=== PATIENT | female | born 1940 | race Caucasian/White ===

== ENCOUNTER → 2018-02-05 | Outpatient (CLI) | payer OTHER ==
[~2018-02-05] MED LIST: ATEN25; ATOR10 PO; CEFP200 PO; DIPH50 PO; FLUT.05NI; HYDACE5 PO; HYDCHL25; IBUP400 PO; PHENA200 PO; PRED10 PO; PROM25 PO; Prinivil10 MG PO; RXPHEN200 PO; RXSULTRIDS PO; SULTRIDS PO; VALACYCLOVIR1000 MG PO
[2018-02-06 09:42] LABS: Source Vagina
[2018-02-07 13:05] LABS: HPV Genotype 16 Not Detected (NOTDET); HPV Genotype 18 Not Detected (NOTDET)
[2018-02-12 15:25] LABS: HPV High Risk Other Not Detected (NOTDET)
== END ==
LOC: LAB SHORT 16:43 → OLS 16:43
PROVIDERS: Obstetrics & Gynecology Gynecology
DX: Z91.89 Other specified personal risk factors, not elsewhere classified (principal)
CPT/HCPCS: 87624; G0123

== ENCOUNTER → 2018-03-06 | Outpatient (CLI) | payer OTHER | END | disposition home or self-care (01) | LOC: LAB SHORT 14:05 → PLD 14:05 | DX: D04.4 Carcinoma in situ of skin of scalp and neck (principal) | CPT/HCPCS: 88305 ==

== ENCOUNTER → 2018-11-13 | Outpatient (CLI) | payer OTHER | END | disposition home or self-care (01) | LOC: LAB SHORT 08:54 → PLD 08:54 | DX: D03.39 Melanoma in situ of other parts of face (principal); L57.0 Actinic keratosis; L98.8 Other specified disorders of the skin and subcutaneous tissue | CPT/HCPCS: 88305; 88312 ==

== ENCOUNTER → 2018-12-10 | Outpatient (CLI) | payer OTHER | END | disposition home or self-care (01) | LOC: PLD 13:53 → LAB SHORT 13:53 | DX: D03.39 Melanoma in situ of other parts of face (principal); L82.1 Other seborrheic keratosis | CPT/HCPCS: 88305 ==

== ENCOUNTER → 2018-12-17 | Outpatient (CLI) | payer OTHER | END | disposition home or self-care (01) | LOC: PLD 07:35 → LAB SHORT 07:35 | DX: D03.39 Melanoma in situ of other parts of face (principal) | CPT/HCPCS: 88305 ==

== ENCOUNTER 2019-04-30 09:41 | Day surgery (SDC) | payer OTHER, SELFPAY ==
[2019-04-30 13:53] LABS: Performing Lab VERACYTE; Test Name FNA
== END 2019-04-30 23:43 | disposition home or self-care (01) ==
LOC: US 09:41
PROVIDERS: Family Medicine
PROC: 0GBG3ZX Excision of Left Thyroid Gland Lobe, Percutaneous Approach, Diagnostic (ICD-10-PCS; principal; 2019-04-30)
DX: E04.1 Nontoxic single thyroid nodule (principal)
CPT/HCPCS: 10005

== ENCOUNTER → 2019-05-14 | Outpatient (CLI) | payer OTHER, SELFPAY ==
[2019-05-16 15:07] LABS: HPV 16 Negative (Negative); HPV 18 Negative (Negative); HPV OTHER HR TYPES Negative (Negative)
== END | disposition home or self-care (01) ==
LOC: LAB SHORT 16:43 → LAB 16:43
PROVIDERS: Obstetrics & Gynecology Gynecology
DX: Z91.89 Other specified personal risk factors, not elsewhere classified (principal)
CPT/HCPCS: 87624; G0123

== ENCOUNTER → 2020-02-17 | Outpatient (CLI) | payer OTHER | END | disposition home or self-care (01) | LOC: PLD 11:50 → LAB SHORT 11:50 | DX: D04.5 Carcinoma in situ of skin of trunk (principal) | CPT/HCPCS: 88305 ==

== ENCOUNTER → 2020-09-20 | Outpatient (CLI) | payer OTHER, SELFPAY ==
[2020-09-20 11:54] LABS: Source, Urine Clean Catch
[2020-09-20 13:56] LABS: Appearance, Urine Clear (Clear); Bilirubin, Urine Neg (Neg); Blood, Urine Neg (Neg); Color, Urine Yellow (P-Yellow); Glucose Qualitative, Urine Neg (Neg); Ketones, Urine Neg (Neg); Leukocyte Esterase, Urine 2+ (Neg); Nitrite, Urine Neg (Neg); Protein, Urine Neg (Neg); Urobilinogen, Urine NORM (Normal)
[2020-09-20 14:12] LABS: Bacteria Mod /hpf; Red Blood Cells, Urine 0-2 /hpf (0-2); Squamous Epithelial Cells Mod /hpf (Few)
[2020-09-20 14:13] LABS: Transitional Epithelial Cells Rare /hpf (0-Rare)
[2020-09-20 17:49] LABS: Creatinine, Urine Random 67.1 mg/dL (27.00-270.00); Protein, Urine Random 9.7 mg/dL (0.0-11.9); Protein/Creat Ratio, Ur Random 0.1
[2020-09-20 17:56] LABS: Creatinine, Urine Random 65.3 mg/dL (27.00-270.00); Microalb/Creat Ratio UR, Rand 12.251 mg/g (0.000-30.000)
== END ==
LOC: PLD 11:51 → LAB SHORT 11:51
PROVIDERS: Family Medicine
DX: N18.31 Chronic kidney disease, stage 3a (principal)
CPT/HCPCS: 81001; 82043; 82570; 84156; 87086

== ENCOUNTER → 2022-05-29 | Outpatient (CLI) | payer OTHER | END | disposition home or self-care (01) | LOC: PLD 08:07 → LAB SHORT 08:07 | DX: D48.5 Neoplasm of uncertain behavior of skin (principal) | CPT/HCPCS: 88305 ==

== ENCOUNTER 2022-07-06 21:08 | Inpatient (IN) | payer OTHER ==
[~2022-07-06] VITALS: Ht 167.6 cm; Wt 80.6 kg
[~2022-07-06 21:08] MED LIST changes: -B-100 COMPLEX100 MG PO; -B-121000 MC7 PO; -C COMPLEX1000 M1 PO; -CALCIUM-MAGNES1 EAC9; -CO Q-10100 MG PO; -ELIQUIS2.5 M1 PO; -ELIQUIS5 M2 PO; -GENICIN500 M2 PO; -L-Lysine500 M1 PO; -LEVO750 PO; -LISINOPRIL-HCT1 EACH PO; -METO25ER PO; -MULTI-VITAMIN1 EAC2 PO; -Magnesium250 MG PO; -ONDA4ODT MM; -PROBIOTIC; -VISBIOME 112.51 EACH PO; -VIT E; -VITAMIN D3; -[UNRECOGNIZED DRUG - OTHER]
[2022-07-06 23:23] LABS: BASOPHILS ABSOLUTE AUTO 0.04 K/mm3 (0.00-0.23); BASOPHILS PERCENT AUTO 0 % (0-2); EOSINOPHILS PERCENT AUTO 0 % (0-6); Hematocrit 41.5 % (33.0-51.0); Hemoglobin 13.9 g/dL (11.5-16.0); IMMATURE GRAN ABSOLUTE AUTO 0.12 K/mm3 (0.00-0.10); IMMATURE GRAN PERCENT AUTO 1 % (0-1); LYMPHOCYTES ABSOLUTE AUTO 0.47 K/mm3 (0.84-5.20); LYMPHOCYTES PERCENT AUTO 2 % (21-46); MONOCYTES ABSOLUTE AUTO 1.12 K/mm3 (0.16-1.47); MONOCYTES PERCENT AUTO 6 % (4-13); Mean Corpuscular HGB 29.1 pg (26.0-34.0); Mean Corpuscular HGB Conc 33.5 g/dL (31.5-36.5); Mean Corpuscular Volume 87 fL (80-100); Mean Platelet Volume 9.6 fL (9.1-12.4); NEUTROPHILS ABSOLUTE AUTO 17.65 K/mm3 (1.96-9.15); NEUTROPHILS PERCENT AUTO 91 % (41-73); Platelet Count 213 K/mm3 (150-400); RDW Standard Deviation 41.6 fL (35.1-46.3); Red Blood Cell Count 4.77 M/mm3 (3.80-5.20)
[2022-07-06] MEDS ORDERED: LISINOPRIL-HCT1 EACH PO (23:25)
[2022-07-06] MEDS ORDERED: MULTI-VITAMIN1 EAC2 PO (23:25)
[2022-07-06] MEDS ORDERED: CO Q-10100 MG PO (23:25)
[2022-07-06] MEDS ORDERED: ELIQUIS2.5 M1 PO (23:25)
[2022-07-06] MEDS ORDERED: GENICIN500 M2 PO (23:26)
[2022-07-06] MEDS ORDERED: L-Lysine500 M1 PO (23:26)
[2022-07-06] MEDS ORDERED: B-100 COMPLEX100 MG PO (23:26)
[2022-07-06] MEDS ORDERED: Magnesium250 MG PO (23:27)
[2022-07-06] MEDS ORDERED: B-121000 MC7 PO (23:27)
[2022-07-06] MEDS ORDERED: C COMPLEX1000 M1 PO (23:28)
[2022-07-06] MEDS ORDERED: [UNRECOGNIZED DRUG - OTHER] (23:29)
[2022-07-06] MEDS ORDERED: PROBIOTIC (23:29)
[2022-07-06] MEDS ORDERED: VITAMIN D3 (23:30)
[2022-07-06] MEDS ORDERED: VIT E (23:30)
[2022-07-06] MEDS ORDERED: CALCIUM-MAGNES1 EAC9 (23:31)
[2022-07-06 23:42] LABS: Albumin, Blood 3.4 g/dL (3.4-5.0); Albumin/Globulin Ratio 0.9 (0.8-1.8); Bilirubin, Total 1.4 mg/dL (0.1-1.0); Calcium, Blood 9.2 mg/dL (8.5-10.1); Creatinine, Blood 1.06 mg/dL (0.40-1.00); Globulin, Blood 3.9 g/dL (2.2-4.0); Potassium, Blood 3.4 mmol/L (3.5-5.5); Total Protein, Blood 7.3 g/dL (6.4-8.2)
[2022-07-07 08:04] LABS: Magnesium, Blood 1.6 mg/dL (1.6-2.4); Phosphorus, Blood 2.2 mg/dL (2.5-4.9); Thyroid Stimulating Hormone 0.635 uIU/mL (0.360-4.800)
--- NOTE | 2022-07-07 10:23 | NUR ---
ASSUMPTION OF CARE ALBERTO ESPINOZA AND MERLYN ESPINOZA ASSUMED CARE OF PATIENT AT 0700. REPORT TAKEN FROM SHAKIRA ESPINOZA. PATIENT IS A&O X3 WITH CONFUSION OF THE LOCATION THAT SHE'S IN. PATIENT IS CALM AND COOPERATIVE WITH CARE. PATIENT WAS ABLE TO TRANSFER TO THE BEDSIDE COMMODE THIS AM WITH 1 PERSON MINIMAL ASSIST, GAIT BELT AND WALKER USED. PATIENT NEEDED HELP GETTING TO A SITTING POSITION IN BED BUT WAS ABLE TO STAND AND AMBULATE WELL. PATIENT NEEDED HELP WITH WIPING AND PERICARE WELL WHEN GETTING OFF THE COMMODE. PATIENT STATED SHE FELT LIKE SHE NEEDED TO URINATE BUT WAS UNABLE TO VOID. PATIENT'S SBP 80-100 THIS MORNING. MAP REMAINED >65. OTHER VITALS STABLE. AFEBRILE. BED IN LOWEST POSITION AND CALL LIGHT WITHIN REACH.
--- NOTE | 2022-07-07 14:15 | NUR ---
PT C/O BACK PAIN TO RT SIDE PAIN, PLAN TO ADMINISTER TYLENOL FOR PAIN. UPON RETURNING TO ROOM WITH TYLENOL VITAL SIGNS ASSESSED, PT NOTED TO BE FEBRILE AT THIS TIME. PT HAD PREVIOUSLY TOELRATED ORAL MEDS WHOLE WELL WITH WATER, BUT NOW REQUIRES CRUSHED IN APPLESAUCE. PT WAS ALERT FOLLOWS COMMANDS, BUT WAS CONFUSED. HR NOTED TO INCREASE FROM LOW 100-110s TO 150s, PT BECOMES MORE CONFUSED, SHE IS DIFFICULT TO ARROUSE. PT SHIVERING, SKIN BECOMES COOL TO TOUCH AND IS DIAPHORETIC, PT NOTED TO ALSO SUDDENLY BE HYPERTENSIVE. BODY TRIMMER GABE TO BEDSIDE ALSO FOR ASSESSMENT. PT'S MENTATION QUICKLY IMPROVES, SHE AWAKENS TO VERBAL STIMULI EASILY, COOLNESS AND DIAPHORESIS BOTH RESOLVE WITHOUT INTERVENTION, BP AND HR RETURN TO BASELINE ALSO WITHOUT INTERVENTION. DR SMITH CALLED TO ROOM, HE ARRIVES FOR REASSESSMENT. DR SMITH UPDATED THAT PT HAS HAD NO OUTPUT DURING THIS SHIFT, AND BLADDER SCAN REVEALED LESS THAN 155ML IN BLADDER. NEW ORDERS OBTAINED FOR RENAL LAB PANEL WHICH ARE BEING DRAWN NOW AND RENAL/BLADDER ULTRASOUND, WHICH THE [employer] DEPARTMENT MANAGER IS ON HER WAY AT THE TIME OF THIS NOTE. PT DOES REMAIN FOGETFUL, VITALS HAVE RETURNED TO BASELINE. FAMILY AT BEDSIDE. WILL CONTINUE TO OBSERVE FOR CHANGES. PT'S FEVER CONTINUES TO IMPROVE
[2022-07-07 14:50] LABS: Albumin, Blood 2.5 g/dL (3.4-5.0); Anion Gap 12 mmol/L (6-16); Blood Urea Nitrogen 22 mg/dL (8-24); Bun/Creatinine Ratio 17.1 (12.0-20.0); CO2, Blood 23 mmol/L (21-32); Calcium, Blood 8.5 mg/dL (8.5-10.1); Chloride, Blood 96 mmol/L (98-108); Creatinine, Blood 1.29 mg/dL (0.40-1.00); Glomerular Filtration Rate 41 (60-); Glucose, Blood 148 mg/dL (70-99); Magnesium, Blood 1.5 mg/dL (1.6-2.4); Phosphorus, Blood 2.2 mg/dL (2.5-4.9); Potassium, Blood 3.4 mmol/L (3.5-5.5); Sodium, Blood 131 mmol/L (136-145)
--- NOTE | 2022-07-07 17:27 | NUR ---
SHIFT SUMMARY PATIENT IS A&O X3 WITH CONFUSION ABOUT LOCATION, STATING SHE THOUGHT SHE WAS IN [place]. PATIENT IS CALM AND COOPERATIVE WITH CARE. PATIENT BRIEFLY HAD AN EPISODE WITH TACHYCARDIA WITH HR 140-160 WITH PALE/COLD BODY AND EXTREMETIES AFTER SPIKING A FEVER BRIEFLY THAT WAS OVER 103 DEGREES FAHRENHEIT. THE PATIENT ALSO BECOME UNRESPONSIVE DURING THIS EVENT. THIS EPISODE LASTED APPROXIMATELY 30 MINUTES IN TOTAL AND PATIENT RECOVERED TO BASELINE. MD BURDEN WAS NOTIFIED AND PATIENT MEDICATED PER ORDERS. THE PATIENT IS NOW A&O X3, WITH NOTED FORGETFULNESS. PATIENT'S EVALUATIONS FROM OT/PT WERE DENIED TODAY DUE TO PATIENT'S QUICK CHANGE OF CONDITION DESPITE RECOVERY; THERAPY TO [facility] TOMORROW 07/08. PATIENT WAS EVALUATED BY SPEECH THERAPY DUE TO INABILITY TO TAKE WHOLE MEDICATIONS PREVIOUSLY FOR THIS RN. THE PATIENT WILL GET MEDS WHOLE IN APPLESAUCE. PATIENT WAS KEPT ON A REGULAR TEXTURE DIET. PATIENT IS VERY [place] BUT ANSWERS APPROPRIATELY. CURRENT VITALS ARE STABLE WITH SBP 90-100S. PATIENT HAS CHRONIC AFIB WITH NO REPORTED SIGNS OR SYMPTOMS OF DIZZINESS, CHEST PAIN, PALPITATIONS, OR SHORTNESS OF BREATH. HR IS MAINTAINING AT 80-100S. PATIENT IS NOW AFEBRILE. PATIENT HAS SCOLIOSIS AND ARTHRITIS AND WAS MEDICATED PER EMAR. PATIENT ON RA WITH O2 SATS >92%; DENIES SOB AND SHOWING NO SIGNS OF RESP DISTRESS. PATIENT HAS BEEN GIVEN ENSURES TODAY SHE HAS DENIED MEALS. PATIENT APPEARS TO BE RESTING IN BED. BED IN LOWEST POSITION AND CALL LIGHT WITHIN REACH. WILL CONTINUE TO MONITOR UNTIL SHIFT CHANGE AT 1900.
--- NOTE | 2022-07-07 22:12 | NUR ---
BLOOD CUTURE BLOOD CUTURE CALL OF GRAM POSITIVE DIPLOCOCCI. REPORTED TO CHARGE NURSE. CALLED PHARMACY TO SEE IF ABX PT CURRENTLY TAKING COVERED. UNKNOWN DUE TO ALLERGIES.
[2022-07-08 04:34] LABS: Hematocrit 35.2 % (33.0-51.0); Hemoglobin 11.7 g/dL (11.5-16.0); Mean Corpuscular HGB Conc 33.2 g/dL (31.5-36.5); Mean Corpuscular Volume 87 fL (80-100); Platelet Count 176 K/mm3 (150-400); RDW Coefficient Variation 13.3 % (11.7-14.2); RDW Standard Deviation 42.5 fL (35.1-46.3); Red Blood Cell Count 4.03 M/mm3 (3.80-5.20); White Blood Cell Count 18.68 K/mm3 (4.00-11.30)
[2022-07-08 04:56] LABS: BAND PERCENT MAN 31 % (0-8); BASOPHILS PERCENT MAN 0 % (0-2); EOSINOPHILS PERCENT MAN 0 % (0-6); LYMPHOCYTES ABSOLUTE MAN 0.18 K/mm3 (0.84-5.20); LYMPHOCYTES PERCENT MAN 1 % (21-46); MONOCYTES ABSOLUTE MAN 1.12 K/mm3 (0.16-1.47); MONOCYTES PERCENT MAN 6 % (4-13); NEUTROPHILS ABSOLUTE MAN 17.37 K/mm3 (1.96-9.15); SEG NEUTROPHILS PERCENT MAN 62 % (41-73); TOTAL CELLS COUNTED 100
[2022-07-08 05:06] LABS: Albumin, Blood 2.4 g/dL (3.4-5.0); Anion Gap 7 mmol/L (6-16); Blood Urea Nitrogen 29 mg/dL (8-24); CO2, Blood 24 mmol/L (21-32); Calcium, Blood 8.2 mg/dL (8.5-10.1); Chloride, Blood 99 mmol/L (98-108); Creatinine, Blood 1.45 mg/dL (0.40-1.00); Glomerular Filtration Rate 36 (60-); Glucose, Blood 119 mg/dL (70-99); Magnesium, Blood 2.7 mg/dL (1.6-2.4); Phosphorus, Blood 2.5 mg/dL (2.5-4.9); Potassium, Blood 4.1 mmol/L (3.5-5.5); Sodium, Blood 130 mmol/L (136-145)
--- NOTE | 2022-07-08 05:44 | NUR ---
SHIFT SUMAMRY PT IS ALERT AND ORIENTED, SOMETIMES FORGETFUL. THERE HAVE BEEN NO ACUTE CHANGES T/O THE NIGHT. PT'S VITALS ARE STABLE AND PT IS ON ROOM AIR WITH SATS ABOVE 92%. PT DENIES CHEST PAIN/PRESSURE OR SOB. PT HAS BEEN INCONT OF URINE X2 AND HAS A BRIEF. WHEN TAKING MEDS PT WAS UNABLE TO SWALLOW MEDS WITH APPLESAUCE. SHE WOULD GAG ON WATER AND UNABLE TO SIP WATER WELL. MEDS WERE CRUSHED AND GIVEN WITH APPLESAUCE. CALL LIGHT IS WITHIN REACH.
--- NOTE | 2022-07-08 17:46 | NUR ---
SHIFT SUMMARY: PATIENT A&OX4. PLEASANT AND COOPERATIVE WITH CARE AND [place]. ON RA WITH SPO2 ABOVE 94%. LUNGS CLEAR T/O. ON TELE, AFIB @ 77. VITALS SIGNS REVIEWED. INCONTINENT/CONTINENT WEAR ATTENDS AND USES BSC WITH 1 ASSIST. PATIENT UP IN CHAIR PART OF THE DAY AND RESTING IN BED REST OF SHIFT. PATIENT FAMILY'S IN ROOM VISITING TODAY. ONE TIME ORDER OF NS INFUSING @ 100 MLS/HR. PATIENT RECIEVED 1 DOSE OF TYLENOL FOR FEVER OF 100.6. RECHECKED ALMOST AN HOUR LATER AND WENT DOWN TO 99.6. AWAITING BLOOD CX SENSITIVITIES. PATIENT USE CALL LIGHT APPROPRIATELY. BED IN LOWEST POSITION, LOCKED AND CALL LIGHT WITHIN REACH.
--- NOTE | 2022-07-09 06:40 | NUR ---
SHIFT SUMMARY PT IS ALERT AND ORIENTED, FORGETFUL AT TIMES. SHE IS VERY [place]. THERE HAVE BEEN NO ACUTE CHANGES T/O THE NIGHT. SHE DENIES CHEST PAIN/PRESSURE. DENIES SOB. VITALS ARE STABLE AND IS ON ROOM AIR WITH SATS ABOVE 92%. SHE IS ABLE TO GET UP TO THE BSC WITH SBA. CALL LIGHT IS WITHIN REACH.
--- NOTE | 2022-07-09 12:18 | NUR ---
UPDATE PT WAS STRUGGLING TO TAKE MEDICATIONS THIS AM. MEDICATIONS WERE CRUSHED AND ADMINISTERED WITH APPLESAUCE. PT TOOK, WITH DIFFICULTY, APIXABAN AND METOPROLOL AND BEGAN HAVING GREATER DIFFICULTY WITH GLUCOSAMINE. THE REMAINING MEDICATIONS WERE IN A MED CUP AND WERE KNOCKED TO THE FLOOR WHEN THE PT REACHED FOR THEIR WATER FROM THEIR TRAY. THIS RN STATED THAT REPLACEMENT MEDICATIONS WOULD BE PULLED AND BROUGHT IN TO ADMINISTER TO WHICH THE PT STATED THAT THEY WERE "DONE TRYING TO TAKE PILLS TODAY."
--- NOTE | 2022-07-09 17:24 | NUR ---
SHIFT SUMMARY PT HAS BEEN RESTING IN BED THROUGHOUT THE DAY. PT HAS DENIED C/O PAIN/DISCOMFORT AND HAS REPOSITIONED SELF, OR WITH MINOR ASSISTANCE, FOR COMFORT. VITAL SIGNS HAVE REMAINED STABLE. NO ACUTE CHANGES IN PT CONDITION.
[2022-07-10 05:18] LABS: BASOPHILS ABSOLUTE AUTO 0.02 K/mm3 (0.00-0.23); BASOPHILS PERCENT AUTO 0 % (0-2); EOSINOPHILS ABSOLUTE AUTO 0.04 K/mm3 (0.00-0.68); EOSINOPHILS PERCENT AUTO 0 % (0-6); Hematocrit 37.1 % (33.0-51.0); Hemoglobin 12.1 g/dL (11.5-16.0); IMMATURE GRAN ABSOLUTE AUTO 0.04 K/mm3 (0.00-0.10); IMMATURE GRAN PERCENT AUTO 0 % (0-1); LYMPHOCYTES ABSOLUTE AUTO 1.25 K/mm3 (0.84-5.20); LYMPHOCYTES PERCENT AUTO 12 % (21-46); MONOCYTES ABSOLUTE AUTO 1.07 K/mm3 (0.16-1.47); MONOCYTES PERCENT AUTO 10 % (4-13); Mean Corpuscular HGB 28.7 pg (26.0-34.0); Mean Corpuscular HGB Conc 32.6 g/dL (31.5-36.5); Mean Corpuscular Volume 88 fL (80-100); Mean Platelet Volume 9.8 fL (9.1-12.4); NEUTROPHILS ABSOLUTE AUTO 8.48 K/mm3 (1.96-9.15); NEUTROPHILS PERCENT AUTO 78 % (41-73); Platelet Count 222 K/mm3 (150-400); RDW Coefficient Variation 13.8 % (11.7-14.2); RDW Standard Deviation 44.7 fL (35.1-46.3); Red Blood Cell Count 4.22 M/mm3 (3.80-5.20)
[2022-07-10 05:22] LABS: Albumin, Blood 2.2 g/dL (3.4-5.0); Anion Gap 6 mmol/L (6-16); Blood Urea Nitrogen 27 mg/dL (8-24); Bun/Creatinine Ratio 24.1 (12.0-20.0); CO2, Blood 26 mmol/L (21-32); Calcium, Blood 8.8 mg/dL (8.5-10.1); Chloride, Blood 104 mmol/L (98-108); Creatinine, Blood 1.12 mg/dL (0.40-1.00); Glomerular Filtration Rate 49 (60-); Glucose, Blood 92 mg/dL (70-99); Magnesium, Blood 2.5 mg/dL (1.6-2.4); Phosphorus, Blood 2.1 mg/dL (2.5-4.9); Potassium, Blood 3.7 mmol/L (3.5-5.5); Sodium, Blood 136 mmol/L (136-145)
--- NOTE | 2022-07-10 05:58 | NUR ---
SHIFT SUMMARY PT IS ALERT AND ORIENTED, FORGETFUL AT TIMES. THERE HAVE BEEN NO ACUTE CHANGES T/O THE NIGHT. VITALS ARE STABLE AND IS ON ROOM AIR WITH SATS ABOVE 92%. PT DENIES CHEST PAIN/PRESSURE. DENIES SOB. PT IS ABLE TO GET UP TO BSC WITH SBA. SHE IS ABLE TO GET NEEDS MET. CALL LIGHT IS WITHIN REACH.
[2022-07-10] MEDS ORDERED: C COMPLEX1000 M1 PO (16:07)
[2022-07-10] MEDS ORDERED: ELIQUIS5 M2 PO (16:07)
[2022-07-10] MEDS ORDERED: METO25ER PO (16:11)
[2022-07-10] MEDS ORDERED: ONDA4ODT MM (16:11)
[2022-07-10] MEDS ORDERED: LEVO750 PO (16:11)
[2022-07-10] MEDS ORDERED: VISBIOME 112.51 EACH PO (16:12)
--- NOTE | 2022-07-10 17:09 | NUR ---
DISCHARGE SUMMARY PT WAS TRANSPORTED BY WHEELCHAIR TO PERSONAL VEHICLE. ALL PERSONAL BELONGINGS AND DISCHARGE INSTRUCTIONS WERE IN THE SPOUSE'S POSSESSION AT THE TIME OF DISCHARGE. ALL QUESTIONS AND CONCERNS WERE ADDRESSED PRIOR TO DISCHARGE. PT AND SPOUSE STATED AN UNDERSTANDING OF DISCHARGE INSTRUCTIONS.
== END 2022-07-10 16:59 | disposition home health service (06) | DRG 871 ==
LOC: ER 21:08 → PCU 07-07 04:44
PROVIDERS: Family Medicine; Student in an Organized Health Care Education/Training Program; ADMIT Internal Medicine
DX: A41.81 Sepsis due to Enterococcus (principal); G93.41 Metabolic encephalopathy; E87.1 Hypo-osmolality and hyponatremia; G93.40 Encephalopathy, unspecified; N17.9 Acute kidney failure, unspecified; N12 Tubulo-interstitial nephritis, not specified as acute or chronic; G51.0 Bell's palsy; I48.91 Unspecified atrial fibrillation; I10 Essential (primary) hypertension; Z87.891 Personal history of nicotine dependence; Z98.41 Cataract extraction status, right eye; Z98.42 Cataract extraction status, left eye; Z98.890 Other specified postprocedural states; Z87.19 Personal history of other diseases of the digestive system; Z88.0 Allergy status to penicillin; Z88.1 Allergy status to other antibiotic agents; Z88.2 Allergy status to sulfonamides; Z88.3 Allergy status to other anti-infective agents; Z79.899 Other long term (current) drug therapy
CPT/HCPCS: 36415; 71045; 74176; 76770; 80053; 80069; 83605; 83735; 84100; 84443; 85025; 87040; 87077; 87186; 92526; 92610; 93005; 93010; 94762; 96374; 96375; 97110; 97116; 97162; 97165; 97530; 97535; 99285-25; A9270; C1751; J0696; J1885; J3475; J3480; J7030; J7050; J7120

== ENCOUNTER → 2022-07-06 | Outpatient (CLI) | payer OTHER ==
[~2022-07-06] MED LIST changes: +B-100 COMPLEX100 MG PO; +B-121000 MC7 PO; +C COMPLEX1000 M1 PO; +CALCIUM-MAGNES1 EAC9; +CO Q-10100 MG PO; +ELIQUIS2.5 M1 PO; +ELIQUIS5 M2 PO; +GENICIN500 M2 PO; +L-Lysine500 M1 PO; +LEVO750 PO; +LISINOPRIL-HCT1 EACH PO; +METO25ER PO; +MULTI-VITAMIN1 EAC2 PO; +Magnesium250 MG PO; +ONDA4ODT MM; +PROBIOTIC; +VISBIOME 112.51 EACH PO; +VIT E; +VITAMIN D3; +[UNRECOGNIZED DRUG - OTHER]
[2022-07-06 15:32] LABS: Source, Urine Clean Catch
[2022-07-06 17:22] LABS: Appearance, Urine Hazy (Clear); Bilirubin, Urine Neg (Neg); Blood, Urine 5+ (Neg); Color, Urine Amber (P-Yellow); Glucose Qualitative, Urine Neg (Neg); Ketones, Urine Neg (Neg); Leukocyte Esterase, Urine 3+ (Neg); Nitrite, Urine Pos (Neg); Protein, Urine 2+ (Neg); Specific Gravity, Urine 1.015 (1.003-1.022); Urobilinogen, Urine NORM (Normal)
[2022-07-06 17:48] LABS: Bacteria Many /hpf; Hyaline Casts 0-2 /lpf (0-2); Red Blood Cells, Urine TNTC /hpf (0-2); Squamous Epithelial Cells Many /hpf (Few); White Blood Cells, Urine 25-50 /hpf (0-5)
== END | disposition home or self-care (01) ==
LOC: LAB 15:31 → LAB SHORT 15:31
PROVIDERS: Physician Assistant
DX: N39.0 Urinary tract infection, site not specified (principal)
CPT/HCPCS: 81001; 87077; 87086; 87186

== ENCOUNTER 2023-08-30 11:00 | Emergency (ER) | payer OTHER ==
[~2023-08-30] VITALS: Ht 152.4 cm; Wt 81.7 kg
[~2023-08-30 11:00] MED LIST changes: +B-100 COMPLEX100 MG PO; +B-121000 MC7 PO; +C COMPLEX1000 M1 PO; +CALCIUM-MAGNES1 EAC9; +CO Q-10100 MG PO; +ELIQUIS2.5 M1 PO; +ELIQUIS5 M2 PO; +GENICIN500 M2 PO; +L-Lysine500 M1 PO; +LEVO750 PO; +LISINOPRIL-HCT1 EACH PO; +METO25ER PO; +MULTI-VITAMIN1 EAC2 PO; +Magnesium250 MG PO; +ONDA4ODT MM; +PROBIOTIC; +VISBIOME 112.51 EACH PO; +VIT E; +VITAMIN D3; +[UNRECOGNIZED DRUG - OTHER]
[2023-08-30 11:17] LABS: BASOPHILS ABSOLUTE AUTO 0.05 K/mm3 (0.00-0.23); BASOPHILS PERCENT AUTO 0 % (0-2); EOSINOPHILS ABSOLUTE AUTO 0.06 K/mm3 (0.00-0.68); EOSINOPHILS PERCENT AUTO 1 % (0-6); Hemoglobin 13.8 g/dL (11.5-16.0); IMMATURE GRAN ABSOLUTE AUTO 0.04 K/mm3 (0.00-0.10); IMMATURE GRAN PERCENT AUTO 0 % (0-1); LYMPHOCYTES ABSOLUTE AUTO 0.72 K/mm3 (0.84-5.20); LYMPHOCYTES PERCENT AUTO 6 % (21-46); MONOCYTES ABSOLUTE AUTO 0.39 K/mm3 (0.16-1.47); MONOCYTES PERCENT AUTO 3 % (4-13); Mean Corpuscular HGB 28.4 pg (26.0-34.0); Mean Corpuscular HGB Conc 31.4 g/dL (31.5-36.5); Mean Corpuscular Volume 91 fL (80-100); Mean Platelet Volume 9.7 fL (9.1-12.4); NEUTROPHILS ABSOLUTE AUTO 10.25 K/mm3 (1.96-9.15); NEUTROPHILS PERCENT AUTO 89 % (41-73); Platelet Count 205 K/mm3 (150-400); RDW Coefficient Variation 13.7 % (11.7-14.2); RDW Standard Deviation 45.9 fL (35.1-46.3); Red Blood Cell Count 4.86 M/mm3 (3.80-5.20); White Blood Cell Count 11.51 K/mm3 (4.00-11.30)
[2023-08-30] MEDS ORDERED: PROP10 PO (11:30)
[2023-08-30] MEDS ORDERED: LOSA50 PO (11:30)
[2023-08-30 11:34] LABS: Alanine Aminotransfer (ALT/SGP 43 U/L (12-78); Albumin, Blood 3.7 g/dL (3.4-5.0); Albumin/Globulin Ratio 1.1 (0.8-1.8); Alk Phos 81 U/L (50-136); Anion Gap 4 mmol/L (6-16); Aspartate Aminotrans (AST/SGOT 36 U/L (12-37); Blood Urea Nitrogen 21 mg/dL (8-24); Bun/Creatinine Ratio 18.6 (12.0-20.0); CO2, Blood 25 mmol/L (21-32); Calcium, Blood 9.1 mg/dL (8.5-10.1); Chloride, Blood 111 mmol/L (98-108); Creatinine, Blood 1.13 mg/dL (0.40-1.00); Ethanol (Alcohol), Blood, Med <3 mg/dL; Globulin, Blood 3.5 g/dL (2.2-4.0); Glomerular Filtration Rate 48 (60-); Glucose, Blood 159 mg/dL (70-99); Potassium, Blood 3.8 mmol/L (3.5-5.5); Sodium, Blood 140 mmol/L (136-145); Total Protein, Blood 7.2 g/dL (6.4-8.2)
[2023-08-30 12:07] LABS: International Normalized Ratio 1.24; Prothrombin Time Results 12.9 Sec (9.7-11.5)
[2023-08-30 12:30] VITALS: BP 141/103
== END 2023-08-30 12:45 | disposition short-term general hospital (02) ==
LOC: ER 11:00
PROVIDERS: Student in an Organized Health Care Education/Training Program
DX: I62.00 Nontraumatic subdural hemorrhage, unspecified (principal); R47.1 Dysarthria and anarthria; I61.8 Other nontraumatic intracerebral hemorrhage; Z88.1 Allergy status to other antibiotic agents; Z88.8 Allergy status to other drugs, medicaments and biological substances; Z88.0 Allergy status to penicillin; Z88.2 Allergy status to sulfonamides; Z79.899 Other long term (current) drug therapy; I10 Essential (primary) hypertension; I48.91 Unspecified atrial fibrillation; Z87.891 Personal history of nicotine dependence
CPT/HCPCS: 70450; 70496; 80053; 82947; 85025; 85610; 85730; 93005; 93010; 96374-59; 96375-59; 99285-25; J1953; J2405; J7050; J7168; Q9967